=== PATIENT | male | born 1980 | race Caucasian/White ===

== ENCOUNTER → 2021-12-20 11:04 | Outpatient (CLI) | payer BC, SELFPAY ==
--- NOTE | 2021-12-20 11:06 | DI.RAD.S_ITS ---
PROCEDURE: XR HAND RT MIN 3V INDICATIONS: Right hand injury TECHNIQUE: Three views of the hand(s) acquired. COMPARISON: None. FINDINGS: Bones: No fractures or dislocations. Carpal bones are normally aligned. No suspicious bony lesions. Soft tissues: No suspicious soft tissue calcifications. IMPRESSION: Intact right hand. Dictated by: Krystal Johns M.D. on 12/20/2021 at 12:55 Approved by: Krystal Johns M.D. on 12/20/2021 at 12:55
== END ==
PROVIDERS: PCP Family Medicine; Referring Provider Nurse Practitioner Family; Visit Provider Nurse Practitioner Family
DX: S69.91XA Unspecified injury of right wrist, hand and finger(s), initial encounter (principal); X58.XXXA Exposure to other specified factors, initial encounter
CPT/HCPCS: 73130

== ENCOUNTER 2022-05-10 09:48 | Day surgery (SDC) | payer BC, SELFPAY ==
[2022-05-10] MEDS: LACTATED RINGERS 1,000 ML 200 ML IV ×2 (09:57→11:18)
[2022-05-10 10:07] VITALS: BP 115/79; PULSE 95; RESP 16; TEMP 36.5; O2SAT 97; BMI 29.4
--- NOTE | 2022-05-10 11:05 | PM.HP.1 ---
History of Present Illness History of Present Illness Date Patient Seen: 05/10/22 Time Patient Seen: 11:05 Chief complaint: Screening Colonoscopy Narrative: The patient presents for colorectal screening. They have never had any previous examination for such. No personal or family history of colon cancer. On further history denies any recent gastrointestinal symptoms. No nausea, vomiting, abdominal pain, loss of appetite, unexplained weight loss, change in bowel habits, or blood per rectum. Patient History Medical History BPH (benign prostatic hyperplasia) Generalized anxiety disorder History of colon polyps IBS (irritable bowel syndrome) Multiple lipomas Sprain of right thumb Well adult exam Family & Social History Social History: household members spouse,children lives independently Yes Tobacco & Substance use: Tobacco type cannabis/marijuana Smoking Status Current every day smoker alcohol intake current alcohol intake frequency a few times a month Substance Use Type marijuana Meds Home Medications and Allergies Home Medications Medication Instructions Recorded Confirmed Type dicyclomine 10 mg capsule 10 mg PO TID PRN Intestinal 03/17/22 05/10/22 Rx cramping #30 caps tamsulosin 0.4 mg capsule 0.4 mg PO BEDTIME #90 caps 03/17/22 05/10/22 Rx paroxetine HCl 20 mg tablet 20 mg PO DAILY #90 tabs 04/13/22 05/10/22 Rx Allergies Allergy/AdvReac Type Severity Reaction Status Date / Time No Known Drug Allergies Allergy Verified 05/10/22 10:05 Exam Vital Signs (past 8 hours): - 05/10/22 10:07 Temperature 97.7 F Pulse Rate 95 H Respiratory Rate 16 Blood Pressure 115/79 Pulse Oximetry 97 Oxygen Delivery Method Room Air Oxygen Delivery Method Room Air Narrative Exam Narrative: General adult man alert oriented no acute distress Abdomen soft nontender nondistended Assessment & Plan Assessment & Plan narrative: The patient requires colorectal screening and colonoscopy is recommended. Technical details were discussed. Risks, benefits, alternatives explained. Risks including but not limited to myocardial infarction, aspiration, bleeding, pain, missed lesion, incomplete examination, need for further radiographic studies, colonic perforation, and need for major abdominal surgery were discussed. All questions were answered to their satisfaction, and they are in agreement with this plan. Time Spent With Patient Critical Care time: I spent a total of [] minutes of critical care time on this patient's care today; this time is exclusive of procedural time.
--- NOTE | 2022-05-10 11:06 | P.OP.COLON_ITS ---
Operative Date/Time/Diagnoses Date of procedure: 05/10/22 Time of procedure: 11:06 Pre-op diagnosis: Colorectal screening Post-op diagnosis: same Procedure & Clinicians Study performed: Colonoscopy Same procedure as scheduled: Yes Indications: Colorectal screening Procedure Notes Procedure in detail: The history and physical was performed/updated and the patient is ASA class is 2. The procedure was discussed in detail with the patient. Potential risks complications including infection, bleeding, missed diagnosis, perforation, need for surgery, and were explained. Their questions were answered and informed consent was obtained. Patient was brought to the procedure room and placed standard monitoring equipment. The patient's vital signs were monitored continuously throughout the entire procedure. Prior to starting time-out was performed. The patient was placed in the left lateral recumbent position. Procedural sedation was administered by anesthesia. Examination began with a thorough inspection of the perianal area there was no evidence of fissures, fistulae, external hemorrhoids or cutaneous malignancy. The colonoscopy scope was then placed into the anal canal and was advanced to the cecum, which was identified by the ileocecal ruddy ve, the appendiceal orifice and the confluence of the taenia. The scope was then slowly withdrawn examining colon thoroughly in all directions, irrigating it of any residual stool. Normal healthy colon was observed. No masses polyps or inflammation. The patient tolerated the procedure well. They will be discharged once criteria are met. The prep was of good/excellent quality. The withdrawl time was 6 minutes. Specimen(s): none sent Impression: Normal colonoscopy Post-procedure Recommendations: Colonoscopy in 10 years and High fiber diet Disposition: same day surgery
[2022-05-10 11:39] VITALS: BP 100/75; PULSE 67; RESP 18; TEMP 36.6; O2SAT 95
[2022-05-10 11:44] VITALS: BP 93/54; PULSE 75; RESP 17; TEMP 36.6; O2SAT 94
[2022-05-10 11:51] VITALS: BP 97/60; PULSE 70; RESP 17; TEMP 36.6; O2SAT 93
[2022-05-10 11:55] VITALS: BP 100/60; PULSE 88; RESP 19; TEMP 36.6; O2SAT 94
[2022-05-10 12:17] VITALS: BP 105/71; PULSE 67; RESP 14; TEMP 36.6; O2SAT 98
== END 2022-05-10 12:43 | disposition home or self-care (01) ==
PROVIDERS: PCP Family Medicine; Referring Provider Surgery; Visit Provider Surgery
PROC: 0DJD8ZZ Inspection of Lower Intestinal Tract, Via Natural or Artificial Opening Endoscopic (ICD-10-PCS; CPT 45378; principal; 2022-05-10 10:45)
DX: Z12.11 Encounter for screening for malignant neoplasm of colon (principal)
CPT/HCPCS: 45378; J2704